=== PATIENT | female | born 1985 | race Caucasian/White ===

== ENCOUNTER 2021-10-01 09:25 | Inpatient (IN) | payer BC, OTHER ==
[~2021-10-01] VITALS: Ht 162.6 cm; Wt 88.5 kg
--- NOTE | ~2021-10-01 | O ---
[facility] [place] [address] OPERATIVE REPORT Name: ALLAN SCHAEFER ARIES Room #: 433-I [facility] IN M.R.#: [id number] Admission: 10/01/21 Attend Phys: Zane Humphries MD Discharge: 10/03/21 Date of : 81 Report #: [id number] THIS REPORT FOR: cc: DENA - Opal family physician/PCP DENA - No family physician/PCP Zane Humphries MD ~ DATE OF SERVICE: 10/01/2021 PRE-PROCEDURE DIAGNOSIS: Acute cholecystitis. POST-PROCEDURE DIAGNOSES: 1. Chronic cholecystitis. 2. Choledocholithiasis. PRIMARY SURGEON: Zane Humphries MD ASSISTANTS: None. PROCEDURE PERFORMED: Laparoscopic cholecystectomy with intraoperative cholangiogram. ANESTHESIA TYPE: General. ESTIMATED BLOOD LOSS: 5 mL. SPECIMENS REMOVED: Gallbladder. COMPLICATIONS: None apparent. FINDINGS: Large stone identified in the neck of the gallbladder, sludge and stone seen with ductotomy and dilated bile ducts. Intraoperative cholangiogram with distal common bile duct stone and obstruction. INDICATIONS: The patient is a 36-year-old female with no significant past medical history, presented to the emergency department with complaints of right upper quadrant epigastric abdominal pain, nausea and vomiting. The patient reported that the pain began the week prior to presentation and resolved after a few days. She later developed recurrent pain that awoke her from sleep and she experienced associated vomiting. She presented to the emergency department and workup demonstrated leukocytosis and abdominal ultrasound demonstrating cholelithiasis with mild gallbladder wall thickening. The risks, benefits, and alternatives were discussed with the patient and she agreed to proceed with operative management at this time. PROCEDURE IN DETAIL: After informed consent was obtained, the patient was taken back to the operating room and placed in the supine position on the operating [address] [address] OPERATIVE REPORT Name: ALLAN SCHAEFER [employer] [facility] Room #: 433-I [facility] IN M.R.#: [id number] Admission: 10/01/21 Attend Phys: Zane Humphries MD Discharge: 10/03/21 Date of : 81 Report #: [id number] table. General endotracheal anesthesia was induced per the Anesthesia team and this was done without complication. The abdomen was prepped and draped in the usual sterile fashion. Preoperative antibiotics were administered. A surgical timeout was performed and everyone was in agreement. Local anesthetic was injected in the supraumbilical location. An incision was made to accommodate the 5 mm port using a hemostat and in a Veress technique, pneumoperitoneum was achieved without incident. The 5 mm port was then placed at this location followed by a 5-30 degree laparoscope which was inserted into the abdomen. The abdomen was visualized and noted to be free from traumatic port placement. Three additional ports were then placed, one to accommodate a 12 mm port in the subxiphoid region and two more 5 mm ports in the right upper quadrant. Liver and gallbladder were visualized. The patient was placed in slight reverse Trendelenburg positioning and rotated to the left. The gallbladder was grasped and elevated over the dome of the liver. Electrocautery was used to gently take down the adhesions that were noted. The infundibulum was gently grasped and gentle tension enabled dissection with cautery. A critical view of safety was obtained. A clip was placed on the cystic duct and the ductotomy was made with laparoscopic scissors. There was an immediate expression of soft stones and sludge which were suctioned out of the field. A cholangiocatheter was placed into the abdomen and inserted via the ductotomy and contrast was injected under fluoroscopic imaging. Anatomy confirmed that there was a distal filling defect. Glucagon was administered and several minutes were allowed to pass before reattempting the contrast administration which again demonstrated the distal filling defect. There was no evidence of contrast into the duodenum and the image was consistent with the distal common bile duct stone. Additional clips were placed on the cystic artery, twice proximally and once distally and this was divided with laparoscopic scissors. The cystic duct was divided with laparoscopic scissors and an Endoloop was placed around the cystic duct stump. The remainder of the gallbladder was then retracted and dissected away from the cystic plate uneventfully. The specimen was placed in an Endocatch bag and removed at the subxiphoid port. The largest incision was closed under direct visualization with a fascial closing device and 3-0 Vicryl suture. All skin incisions were closed with buried 4-0 Monocryl sutures and covered with Dermabond as a final dressing. The patient appeared to tolerate the procedure very well and was transferred to PACU in stable condition. By: [id number] Zane Humphries MD /cheli
--- NOTE | ~2021-10-01 | P ---
[facility] [place] [address] PROCEDURE REPORT Name: ALLAN SCHAEFER ARIES Room #: 433-I [facility] IN M.R.#: [id number] Admission: 10/01/21 Attend Phys: Zane Humphries MD Discharge: 10/03/21 Date of : 81 Report #: [id number] THIS REPORT FOR: cc: DENA - No family physician/PCP FAM - No family physician/PCP Devendra Garvey MD ~ cc: Tomi Woodall MD DATE OF SERVICE: 10/03/2021 PROCEDURE PERFORMED: ERCP with sphincterotomy and stone removal. HISTORY OF PRESENT ILLNESS: The patient is a 36-year-old female with recent right upper quadrant abdominal pain, underwent an ultrasound on admission showing cholelithiasis with mild gallbladder wall thickening, positive Anderson sign. She did have a mild elevation in her white blood cell count on admission. Her LFTs yesterday showed a total bilirubin of 0.4, AST 44, ALT 62, and alkaline phosphatase 109. She underwent a laparoscopic cholecystectomy with intraoperative cholangiogram yesterday by Dr. Woodall. Cholangiogram showed a filling defect in the distal common bile duct and the contrast dye did not flow into the duodenum. Therefore, plan is for ERCP today. DESCRIPTION OF PROCEDURE: The risks and benefits of the procedure were explained to the patient, those risks including but not limited to bleeding, perforation and the risk of sedation as well as potential risk for post-ERCP pancreatitis. She understood these risks and gave informed consent. The procedure was performed in the operating room under general anesthesia, 2 grams of Ancef was given prior to the procedure. Next, 50 mg indomethacin rectal suppository also given. Next, using an Olympus side-viewing ERCP scope, the scope was placed in the patient's mouth and advanced under direct vision through the esophagus, stomach and into the second portion of the duodenum. The papilla was identified and normal in appearance. There was bile flow noted. Next using a Ty-Cook 0.025 dome tipped sphincterotome, the common bile duct was cannulated and a cholangiogram was obtained. A single filling defect was noted in the distal common bile duct. The common bile duct was dilated to approximately 10 mm. The intrahepatic ducts were normal. There was no evidence of bile leak with cholangiogram. A wire was advanced into the intrahepatic ducts and a sphincterotomy was performed without difficulty. Next, the sphincterotome catheter was removed leaving the wire in place and a balloon catheter was then advanced over the wire and several balloon sweeps were performed. On the first balloon sweep, a single stone was removed without difficulty. Subsequent balloon sweeps showed no further stones or debris. Next, a balloon occlusion cholangiogram was then performed. No further filling defects were noted. At this point, the wire and the catheter were removed. The scope was withdrawn and the procedure terminated. The patient tolerated the procedure well. [facility] [address] [place] [address] PROCEDURE REPORT Name: ALLAN SCHAEFER [facility] Room #: 433-I DIS IN M.R.#: [id number] Admission: 10/01/21 Attend Phys: Zane Humphries MD Discharge: 10/03/21 Date of : 81 Report #: [id number] IMPRESSION: 1. Single common bile duct stone, status post sphincterotomy and removal. 2. Dilation of the common bile duct. 3. Normal intrahepatic ducts. No evidence of bile leak. RECOMMENDATIONS: Observe the patient post-procedure. Thank you for allowing me to participate in her care. By: 1243 18 Devendra Garvey MD /nt
[~2021-10-01 09:25] MED LIST: FLEXERIL PO; IBUPROFEN 600600 M1 PO; NOHOMEMEDICATIONS; NORCO 5-325 TA1 EACH PO
[2021-10-01 09:26] VITALS: BP 180/91
[2021-10-01 10:03] LABS: ABSOLUTE NEUTROPHILS 11.5 thou/uL (1.4-8.2); BASOPHILS 0.6 % (0.0-2.0); EOSINOPHILS 0.1 % (0.0-3.0); HEMATOCRIT 43.2 % (37.0-47.0); HEMOGLOBIN 14.4 gm/dL (12.0-15.0); LYMPHOCYTES 9.5 % (24.0-44.0); MCH 29.5 pg (26.0-34.0); MCHC 33.4 g/dL (28.0-37.0); MCV 88.5 fL (80.0-100.0); MONOCYTES 4.5 % (1.0-8.0); PLATELET COUNT 292 thou/uL (150-400); POLYS 85.3 % (36.0-66.0); RBC 4.88 mil/uL (4.20-5.00); RDW 14.6 % (10.5-14.5); WBC 13.5 thou/uL (4.0-11.0)
[2021-10-01 10:07] LABS: CALCIUM 9.1 mg/dL (8.5-10.1); CREATININE 0.7 mg/dL (0.6-1.0); POTASSIUM 3.7 mmol/L (3.5-5.1)
[2021-10-01 10:13] LABS: ALBUMIN 3.8 g/dL (3.4-5.0); DIRECT BILIRUBIN 0.2 mg/dL (<0.1-0.2); TOTAL BILIRUBIN 0.4 mg/dL (0.2-1.0); TOTAL PROTEIN 7.2 g/dL (6.4-8.2)
[2021-10-01 10:27] LABS: URINE BILIRUBIN NEGATIVE (Negative); URINE BLOOD TRACE (Negative); URINE CLARITY CLEAR; URINE COLOR YELLOW; URINE GLUCOSE-RANDOM* TRACE (Negative); URINE KETONES 3+ (Negative); URINE LEUKOCYTES-REFLEX NEGATIVE (Negative); URINE NITRITE-REFLEX NEGATIVE (Negative); URINE PROTEIN (DIPSTICK) NEGATIVE (Negative); URINE SPECIFIC GRAVITY 1.025 (1.005-1.035); URINE UROBILINOGEN 0.2 E.U./dl (0.2-1.0)
[2021-10-01 12:35] VITALS: BP 164/94
--- NOTE | 2021-10-01 12:59 | EKG ---
[place] [address] [facility] [place] [address] ELECTROCARDIOGRAM REPORT Name: ALLAN SCHAEFER ARIES Room #: 433-I ADM IN M.R.#: [id number] Admission: 10/01/21 Attend Phys: Zane Humphries MD Discharge: Date of : 81 Report #: [id number] [facility] ED Test Date: 2021-10-01 Test Time: 09:55:31 Pat Name: ALLAN SCHAEFER Department: Room: [facility] Gender: F Stamp Clerk: MIGUEL : 1985 Requested By: Jose Strickland Order Number: [id number] MD: Omar Sarkar Measurements Intervals [place] Rate: 68 P: 40 CT: 150 QRS: 66 QRSD: 86 T: 57 QT: 417 QTc: 444 Interpretive Statements Sinus rhythm Probable anteroseptal infarct, old No previous ECG available for comparison Electronically Signed On 10-01-2021 12:58:41 METER RECORD CLERK by Omar Sarkar [email or web address] <ELECTRONICALLY SIGNED> By: Omar Sarkar MD, [facility] 10/01/21 1258 [id number] Omar Sarkar MD, FACC /EPI
[2021-10-01 16:13] VITALS: BP 151/81
--- NOTE | 2021-10-01 18:30 | NUR ---
PT RECEIVED FROM REC RM AT 1600 ALERT AND IN NO ACUTE DISTRESS. 4 LAP SITES INTACT W/ DERMABOND. GI NURSE IN TO SEE PT RE ERCP TOMORROW. PT ALLOWED CLEAR LIQUIDS UNTIL 0700 PER GI PROCEDURE IN THE AFTERNOON. VOIDING IN BR. AMBULATED THE HALLS TO HELP MOVE FLATUS TROUGH.
--- NOTE | 2021-10-02 02:44 | NUR ---
PT HAS SLEPT MOST OF THIS NOC. HAS GOTTEN UP AND WALKED A FEW LAPS AROUND THE UNIT. DENIES C/O PAIN OR DISCOMFORT. PT IS UP AD JANE. VSS. NO MEDICATION GIVEN AT HS. FALL PRECUATIONS IN PLACE, CALL LIGHT IS WITHIN REACH.
[2021-10-02 06:35] LABS: ALBUMIN 3.5 g/dL (3.4-5.0); CALCIUM 8.8 mg/dL (8.5-10.1); CREATININE 0.7 mg/dL (0.6-1.0); POTASSIUM 3.8 mmol/L (3.5-5.1); TOTAL BILIRUBIN 0.4 mg/dL (0.2-1.0)
[2021-10-02 08:00] VITALS: BP 135/78
--- NOTE | 2021-10-02 09:36 | NUR ---
ASSUMED CARE OF PT AT 0700, VSS. AX04. AFEBRILE. NO RESPIRATORY DISTRESS, PT SATURATING AT 96% ON 12L. PERFORMED KELLEN CARE ON PT - INCONTINENT OVERNIGHT. ATE MAJORITY OF BREAKFAST. PT CO OF INDIGESTION, DR IBRAHIM NOTIFIED FOR PRN ANTACID. PT STATED SHE WAS GETTING UP AND WALKING TO BR AT FACILITY - WILL ENDORSE TO PT FOR CLEARANCE. WILL CONTINUE TO MONITOR.
--- NOTE | 2021-10-02 11:57 | NUR ---
ASSUMED CARE OF PT AFTER SURGERY - ARRIVED BACK TO 4S APPROXIMATLEY AT 1030.. VSS. AX04. AFEBRILE. NO RESP DISTRESS. PT CURRENTLY ON 2L O2, 98%. PAIN IS CONTROLLED, NO N/V. ABDOMINAL SOUNDS ACTIVE. LUNGS CLEAR. PT GIVEN PAIN MEDICATION AND INSTRUCTED TO EAT TOLERATED PER RENAL DIET. AT BEDSIDE. WILL CONTINUE TO MONITOR.
[2021-10-02 15:00] VITALS: BP 140/87
[2021-10-02 15:51] VITALS: BP 157/93
--- NOTE | 2021-10-02 19:08 | NUR ---
ASSUMED CARE OF PT AT 0700. UP AD JANE. CONTINENT. VSS. A0X4. NO COMPLAINTS OTHER THAN RIGHT SHOULDER PAIN FROM GAS. GIVEN HYDROCODONE AND MORPHINE LATER IN THE DAY. PT REMAINED NPO IN PREPARATION FOR PROCEDURE. HOWEVER IT WAS RESCHEDULED. GIVEN LIGHT MEAL BEFORE BEDTIME AND WILL BE NPO STARTING MIDNOC.
[2021-10-02 19:33] VITALS: BP 153/97
--- NOTE | 2021-10-03 01:42 | NUR ---
PT C/O CONSTIPATION AND RT SHOULDER PAIN. SURGEON CHECK PILOT NOTIFIED. MIRALAX ORDERED. CXR ORDERED FOR IN THE AM. CONTACTED RT FOR AN IS. EDUCATED PT ON USE AND IMPORTANCE OF ITS USE. PT REMAINS ON RA. VSS. AFEBRILE. MEDICATION GIVEN PER OCT. PT GETS UP AD JANE AND HAS WALKED NUMEROUS OCCASIONS AROUND THE UNIT. PT CALLS OUT APPROPRIATELY FOR ASSISTANCE.
[2021-10-03 07:12] VITALS: BP 105/65
--- NOTE | 2021-10-03 09:42 | NUR ---
ASSUMED CARE OF PT AT 0700 THIS MORNING. PT HAS LAP CHOLY 2/6 AND IS GOING FOR ERCP AT 1200 THIS AFTERNOON. PT A/OX4 AND AMBULATES INDEP. ASSESSMENTS NOTED IN CHART AND OTHERWISE UNREMARKABLE. CALL LIGHT IN REACH AND NO FALL PRECAUTIONS ARE NEEDED. MEDS AND TX GIVEN NEEDED AND SCHEDULED. WILL MONITOR AND NOTE ANY CHANGES.
[2021-10-03] MEDS ORDERED: MIRALAX17 GM PO (15:20)
[2021-10-03] MEDS ORDERED: TRAMADOL 50 MG50 MG PO (15:21)
[2021-10-03 15:25] VITALS: BP 191/104
[2021-10-03 15:40] VITALS: BP 105/65
--- NOTE | 2021-10-03 17:07 | PATH ---
[facility] [address] [place] [address] PATHOLOGY RPT PROCEDURE Name: ALLAN SCHAEFER ARIES Room #: 433-I ADM IN M.R.#: [id number] Admission: 10/01/21 Date of : 81 Discharge: Report #: [id number] Path Case #: [id number] [facility] Accession Number: [id number] . 01 Material submitted: . gallbladder - GALLBLADDER AND CONTENTS . 01 Clinical history: . ACUTE CHOLELITHIASIS . 02 Diagnosis: Gallbladder, excision: - Acute and chronic inflammation, with prominent eosinophils. - Lithiasis. - Negative for malignancy. (ADELINAK:satish; 10/03/2021) S 10/03/2021 1429 Local . 02 Electronically signed: . Herberth Lin MD, Pathologist NPI- [id number] . 01 Gross description: . Fixative: Formalin Labeled: Gallbladder and contents Specimen received: A focally disrupted, gallbladder specimen with an opened cystic duct margin Dimensions: 7.0 x 2.7 x 1.2 cm Serosa: Orozco-pink, smooth and glistening, with a 0.3 x 0.2 cm, full-thickness fundal defect Adventia: Orozco-yellow, shaggy and cauterized, with a 0.4 x 0.2 cm full-thickness fundal defect Lymph node: None identified Mucosa: Orozco-pink, velvety, and focally denuded Wall thickness: 0.1-0.4 cm Calculi: Multiple orozco to yellow, granular, lobulated, friable choleliths, measuring 2.0 x 2.0 x 0.7 cm in aggregate, located in the neck, body and fundus of the gallbladder . A1- Sizing Machine Operator neck, body, fundus, and the cystic duct margin. (HÉCTOR; 10/02/2021) HÉCTOR/HÉCTOR 10/02/2021 1050 Local . 02 Pathologist provided ICD-10: K80.12 . 02 CPT . [address] [address] PATHOLOGY RPT PROCEDURE Name: [facility] Room #: 433-I ADM IN M.R.#: [id number] Admission: 10/01/21 Date of : 81 Discharge: Report #: [id number] Path Case #: [id number] Specimen Comment: A courtesy copy of this report has been sent to [phone] Specimen Comment: Report sent to Performed at: 01 [facility] [address] [id number] MD Alex Sparks MD Phone: [phone] Performed at: 02 [facility] [address] [id number] MD King Santiago MD Phone: [phone]
== END 2021-10-03 18:25 | disposition home or self-care (01) | DRG 419 ==
LOC: ER 09:25 → EROBS 12:13 → 4S 12:13
PROVIDERS: Student in an Organized Health Care Education/Training Program; ADMIT Surgery; ATTEND Surgery
PROC: 0FT44ZZ Resection of Gallbladder, Percutaneous Endoscopic Approach (ICD-10-PCS; principal; 2021-10-01)
PROC: BF121ZZ Fluoroscopy of Gallbladder using Low Osmolar Contrast (ICD-10-PCS; principal; 2021-10-01)
PROC: 0FC98ZZ Extirpation of Matter from Common Bile Duct, Via Natural or Artificial Opening Endoscopic (ICD-10-PCS; 2021-10-03)
PROC: 0F798ZZ Dilation of Common Bile Duct, Via Natural or Artificial Opening Endoscopic (ICD-10-PCS; 2021-10-03)
DX: K80.12 Calculus of gallbladder with acute and chronic cholecystitis without obstruction (principal); F17.210 Nicotine dependence, cigarettes, uncomplicated; Z20.822 Contact with and (suspected) exposure to COVID-19; Z88.1 Allergy status to other antibiotic agents; Z88.0 Allergy status to penicillin; Z88.2 Allergy status to sulfonamides
CPT/HCPCS: 10195; 50010; 50101; 50411; 50555; 51297; 51489; 51578; 52265; 52266; 53307; 53310; 53312; 54022; 54118; 55245; 56462; 56525; 56526; 58574; 58910; 62110; 62900; 70005

== ENCOUNTER 2021-10-03 23:39 | Inpatient (IN) | payer BC, OTHER ==
[~2021-10-03] VITALS: Ht 162.6 cm; Wt 88.5 kg
[~2021-10-03 23:39] MED LIST changes: +MIRALAX17 GM PO; +TRAMADOL 50 MG50 MG PO
[2021-10-03 23:41] VITALS: BP 182/109
[2021-10-04 00:44] LABS: CALCIUM 8.7 mg/dL (8.5-10.1); CREATININE 0.7 mg/dL (0.6-1.0)
[2021-10-04 00:59] LABS: ALBUMIN 3.3 g/dL (3.4-5.0); TOTAL BILIRUBIN 0.5 mg/dL (0.2-1.0); TOTAL PROTEIN 6.7 g/dL (6.4-8.2)
[2021-10-04 02:39] LABS: ABSOLUTE NEUTROPHILS 10.6 thou/uL (1.4-8.2); BASOPHILS 0.2 % (0.0-2.0); HEMATOCRIT 39.2 % (37.0-47.0); HEMOGLOBIN 13.3 gm/dL (12.0-15.0); LYMPHOCYTES 5.9 % (24.0-44.0); MCH 29.8 pg (26.0-34.0); MCHC 33.8 g/dL (28.0-37.0); MCV 88.2 fL (80.0-100.0); MONOCYTES 9.7 % (1.0-8.0); PLATELET COUNT 239 thou/uL (150-400); POLYS 84.2 % (36.0-66.0); RBC 4.45 mil/uL (4.20-5.00); RDW 14.3 % (10.5-14.5); WBC 12.5 thou/uL (4.0-11.0)
[2021-10-04 06:52] VITALS: BP 164/90
[2021-10-04 07:04] VITALS: BP 160/92
[2021-10-04 07:45] VITALS: BP 160/101
[2021-10-04 15:35] VITALS: BP 136/78
[2021-10-04 19:47] VITALS: BP 134/84
[2021-10-05 04:04] VITALS: BP 137/81
--- NOTE | 2021-10-05 04:44 | NUR ---
Assumed pt care at 1900. Pt is alert and oriented. No sign of distress noted in pt. Denies pain at this time. Pt is independent and ambulatory. No acute events during the night. Pt is stable. Continue to monitor. No further needs at this time.
[2021-10-05 07:32] VITALS: BP 153/101
[2021-10-05 09:21] LABS: HEMATOCRIT 40.7 % (37.0-47.0); HEMOGLOBIN 13.5 gm/dL (12.0-15.0); MCH 29.6 pg (26.0-34.0); MCHC 33.2 g/dL (28.0-37.0); RBC 4.57 mil/uL (4.20-5.00); RDW 14.6 % (10.5-14.5); WBC 10.4 thou/uL (4.0-11.0)
[2021-10-05 09:43] LABS: ALBUMIN 3.5 g/dL (3.4-5.0); CALCIUM 9.5 mg/dL (8.5-10.1); CREATININE 0.8 mg/dL (0.6-1.0); POTASSIUM 3.6 mmol/L (3.5-5.1); TOTAL BILIRUBIN 0.6 mg/dL (0.2-1.0); TOTAL PROTEIN 6.9 g/dL (6.4-8.2)
[2021-10-05 11:19] VITALS: BP 165/108
--- NOTE | 2021-10-05 14:44 | NUR ---
CHART REVIEWED AND DISCUSSED WITH CARE TEAM. PT MAY DC OVER THE WEEKEND WITH NO NEEDS. NO PT/OT ORDERS. NO NEEDS. PT HAD LAP GABRIELE THIS VISIT. SEEN TO HAVE ELEVATED PANCREATIC ENZYMES. GI RECOMMEND SOFT DIET AND BM PRIOR TO DC. NO CM INTERVENTIONS INDICATED.
[2021-10-05 15:36] VITALS: BP 144/91
[2021-10-05 17:08] VITALS: BP 144/91
== END 2021-10-05 18:56 | disposition home or self-care (01) | DRG 439 ==
LOC: ER 23:39 → 2N 10-04 04:38 → EROBS 10-04 04:38 → 2N 10-04 07:04
PROVIDERS: Emergency Medicine; ADMIT Surgery; ATTEND Surgery
DX: K85.90 Acute pancreatitis without necrosis or infection, unspecified (principal); K80.10 Calculus of gallbladder with chronic cholecystitis without obstruction; Z20.822 Contact with and (suspected) exposure to COVID-19; Z90.49 Acquired absence of other specified parts of digestive tract; Z88.6 Allergy status to analgesic agent; Z88.1 Allergy status to other antibiotic agents; Z88.0 Allergy status to penicillin; Z87.891 Personal history of nicotine dependence
CPT/HCPCS: 10194